=== PATIENT | female | born 1950 | race Caucasian/White ===

== ENCOUNTER 2024-12-01 17:35 | Inpatient (IN) | payer MEDICARE, OTHER, SELFPAY ==
[2024-12-01] VITALS (20 sets, daily range): BP systolic 94–131; BP diastolic 51–86; BMI 34.9; BMI 37.2
--- NOTE | 2024-12-01 15:03 | ED.GENMED ---
History of Present Illness
General
Chief Complaint: Heart Rate Problem
Time Seen by Provider: 12/01/24 15:02
History of Present Illness
History of Present Illness:
FOCUSED PAST MEDICAL HISTORY
- HTN
REVIEW OF OLD RECORDS
- I reviewed records, the patient had an echo in 2022 was relatively unremarkable with normal EF. I reviewed EMS notes which indicates that the patient is on amlodipine and valsartan.
Went to power brake operator at [facility] due to CP for past 8wks. Associated w/ LE edema and palpitations. EKG at power brake operator noted new onset rapid afib. Palpitations for EMS. EMS rates 120-160s. Was given Cardizem 20mg IV x 1 w/ improvement of
rate to around 80s-110s. The squeezing in chest feels better after exertion. Some mild headache currently; patient was not given any nitroglycerin prior to arrival
Note:
CHIEF COMPLAINT(S)
Irregular heartbeat and chest discomfort.
HISTORY OF PRESENT ILLNESS
The patient is a 74-year-old female who presented with an eight-week history of intermittent chest pressure described as a tight sensation, which occurs unpredictably and is not exacerbated by physical exertion. Additionally, she reports
experiencing palpitations, described as a sensation of the heart skipping beats. She was evaluated by a power brake operator today who noted abnormalities on her electrocardiogram, prompting referral for emergency evaluation.
The patients heart rate was reported by EMS to range from 120 to 160 beats per minute. She describes occasional leg swelling, though not present today, and intermittent shortness of breath, which is reportedly not acute at the moment of evaluation.
The patient reports feeling nauseated and has a mild headache.
According to EMS, she has atrial fibrillation. The potential risks of embolic events such as stroke were discussed, given her age and gender, suggesting the need for anticoagulation therapy. A plan for cardiac blood work including troponin levels
was discussed, along with potential initiation of a continuous medication drip to manage her heart rhythm.
SOCIAL HISTORY
The patient rarely consumes alcohol.
PHYSICAL EXAM
General: Alert, no acute distress.
Skin: Warm, dry.
Head: Normocephalic, atraumatic.
Neck: Supple, trachea midline.
Eye Ears, nose, mouth, and throat: Oral mucosa moist.
Cardiovascular: Normal peripheral perfusion, No edema. Irregular rhythm, tachycardic rate
Respiratory: Respirations are non-labored.
Gastrointestinal: Abdomen nondistended.
Back: Normal range of motion, Normal alignment.
Musculoskeletal: Normal range of motion, normal strength.
Neurological: Alert and oriented to person, place, time, and situation, no focal neurological deficit observed.
Psychiatric: Cooperative, appropriate mood and affect.
PLAN
1. Cardiac evaluation: Perform cardiac blood work, including troponin levels.
2. Initiate continuous drip Cardizem to control heart rhythm.
3. Contact the cardiology group for further recommendations regarding anticoagulation therapy.
4. Offer symptomatic relief for nausea and to help calm the patient, though currently declined.
DIFFERENTIAL DIAGNOSIS
The Differential Diagnosis includes, in no particular order and is not limited to:
1. Atrial fibrillation
2. Atrial flutter
3. Supra-ventricular tachycardia
4. Congestive heart failure
5. Pulmonary embolism
6. Myocardial ischemia or infarction
7. Anxiety-related palpitations
8. Valvular heart disease
9. Hypertensive heart disease
10. Thyrotoxicosis
This patient is presenting with symptoms that could fit many potential cardiovascular or systemic conditions. Further diagnostic workup and monitoring are necessary to narrow down these differentials.
EKG
- A-fib/flutter rate of 95, nonspecific [facility], no old to compare
LABS
- Troponin less than 0.012, chemistries unremarkable exception of sodium of 131, CBC normal
SUMMARY OF ENCOUNTER
The patient, a 74-year-old female, presented with an irregular heartbeat and chest discomfort. She was seen previously by a power brake operator, who identified abnormalities on her electrocardiogram suggesting atrial fibrillation, leading to her referral
for emergency evaluation. In the emergency department, her heart rate ranged from 120 to 160 beats per minute. Given the potential risks associated with atrial fibrillation, anticoagulation therapy was considered. Cardiac blood work was initiated,
including troponin levels, and a plan to start a continuous medication drip to control heart rhythm was discussed.
DISPOSITION
The decision was made to admit the patient to the hospital for further monitoring and management.
ASSESSMENT
The patient is likely experiencing atrial fibrillation, confirmed by ECG abnormalities and clinical presentation of palpitations and chest discomfort. Consideration for atrial flutter, supraventricular tachycardia, and other potential cardiovascular
conditions is ongoing.
MANAGEMENT OF THE PATIENTS CARE WAS DISCUSSED WITH
The case was discussed with Dr. Rod Calderon, who concurred with the plan to admit the patient for further care.
PLAN
1. Hospital admission for ongoing monitoring and management of atrial fibrillation.
2. Initiate cardiac blood work, including troponin levels.
3. Start continuous medication drip to manage heart rhythm as discussed with cardiology.
4. Pending results of TSH testing to further assess and rule out potential contributing factors.
INDEPENDENT REVIEW OF LABS AND INTERPRETATION OF TESTS
My independent review of chemistry indicates that the patient has mild hyponatremia, as sodium is slightly low at 131. The initial troponin level is less than 0.012, which does not suggest myocardial infarction.
MEDICAL DECISION MAKING
-Complexity of Data Reviewed: Chronic conditions affecting care include the patient�s history of cardiovascular abnormalities and differential diagnosis, including atrial fibrillation, atrial flutter, supraventricular tachycardia, congestive heart
failure, pulmonary embolism, myocardial ischemia or infarction, anxiety-related palpitations, valvular heart disease, hypertensive heart disease, and thyrotoxicosis.
-Data:
Category 1
Non-emergency department records reviewed, such as the patient�s cardiology evaluation notes.
Review of laboratory results, including sodium levels and initial troponin.
Category 3
Discussion of management with Dr. Rod Calderon regarding the admission and overall care plan for the patient due to her presenting condition.
-Risk:
Consideration of admission was necessary due to the complexity and risk of the patients presenting condition, including the potential for atrial fibrillation complications. This included the decision for hospitalization and close monitoring.
DIAGNOSIS
1. Atrial Fibrillation (ICD-10: I48.91)
2. Chest Pain, Unspecified (ICD-10: R07.9)
Phy Exam
Physical Exam
Physical Exam:
See HPI
Course
Orders/Labs/Results
Orders:
Orders
12/01/24 14:58
Electrocardiogram (*1) Urgent
Reason for Study: Chest Pain
Cardiac Monitoring- Treatment ONCE
EKG- Treatment ONCE
12/01/24 15:04
Add On- LAB Urgent
Tests Added?: tsh reflex fT4, mg
12/01/24 15:22
Ondansetron Injectable [Zofran] 4 mg IV NOW STA
diazePAM [Valium Injection] 2.5 mg IV NOW STA
12/01/24 15:28
Complete Blood Count/With Diff Urgent
Comprehensive Metabolic Panel Urgent
Magnesium Urgent
Comment: ADD ON
TSH Reflex To Free T4 Urgent
Comment: ADD ON
Troponin I Urgent
12/01/24 15:30
Diltiazem 125 mg/125 ml Nss [Cardizem] 125 mg in 125 ml IV PER PROTOCOL
Initial dose in mg/hr, then titrate:: 5
Titrate to keep:: Heart rate 80-100 bpm
Titrate by mg/hr:: 5 mg/hr
Frequency of titrations (minutes):: 15
Maximum dose in mg/hr:: 15
12/01/24 16:06
CARDIOLOGY CONSULT Routine
Consulting Provider: Fei Rosales
Was physician already notified: Yes
Reason for consult: New onset A-fib with RVR
12/01/24 16:24
Acetaminophen [Tylenol] 650 mg PO NOW STA
12/01/24 16:25
Admit/Transfer Patient As Directed
Co-Sign Provider:
Level of Care: Inpatient admission
Assign to:: IMU- Intermediate Care
Physician / Group: stella samuel
Diagnosis: new onset afib with rvr,anxiety
Reason for Hospitalization: new onset afib with rvr, anxiety
Expected length of stay greater than two midnights?: Yes
ELOS- Estimated Length of Stay in days: 3
I certify the patient meets the requirements for IP care: Yes
Code Status As Directed
Resuscitation Status: Full Code
12/01/24 16:27
PRN Pain Medication Management As Directed
May give lesser potent ordered pain med per pt: Yes
preference::
Protocol:: Medication orders for pain may be administered in a
manner that supports deferring to patient preference
when the pt is:
- Requesting an ordered lesser potent pain medication.
Least to most potent pain medications are defined
as: acetaminophen < NSAID < tramadol < opioids
(morphine, oxycodone, hydromorphone).
- Requesting a lesser dose of the same medication IF
ORDERED.
- Requesting a less intrusive route of administration
if both routes are prescribed by the provider (PO <
IV).
12/01/24 16:36
Add On- LAB Urgent
Tests Added?: bnp
12/01/24 20:00
Apixaban [Eliquis] 5 mg PO BID
Abnormal Lab Results
12/01/24
15:28
Abs Immat Gran (auto) 0.1 H 10^3/uL
(0-0.05)
Absolute Neuts (auto) 6.8 H 10^3/uL
(1.4-6.5)
Absolute Monos (auto) 0.7 H 10^3/uL
(0.1-0.6)
Immature Gran % 1.0 H %
(0-0.5)
Lymphocytes % 15.7 L %
(20.5-51.1)
Sodium 131 L mmol/L
(135-145)
Glucose 152 H mg/dl
(70-99)
Total Bilirubin 1.5 H mg/dl
(0.2-1.3)
Alkaline Phosphatase 162 H U/L
(38-126)
12/01/24 15:28
12/01/24 15:28
Vital Signs
Initial and Last Documented VS:
Initial Vital Signs
Pulse Resp BP
127 18 114/66
12/01/24 15:02 12/01/24 15:02 12/01/24 15:02
Last Documented Vital Signs
Temp Pulse Resp BP Pulse Ox
36.6 C 104 12 108/86 98
12/01/24 15:03 12/01/24 16:30 12/01/24 16:30 12/01/24 16:15 12/01/24 16:00
*Pulse Oximetry
Patient hypoxic: no
*Critical Care Note
Total Time (30-74mins, 75-104mins- exclusive of procedures): Not Applicable
ED Attending Note
-
Portions of this chart may have been created with voice recognition software.� Occasional wrong word or��sound alike� substitutions may have occurred due to the inherent limitations of voice recognition software.
Discharge Plan
Departure
Patient Disposition: Admit
Date of Disposition: 12/01/24
Time of Disposition: 15:57
Presentation/result/management discussed w/ accepting MD/DO: Hospitalist
Discharge Problem:
Atrial fibrillation with rapid ventricular response
Prescriptions:
No Action
amlodipine [Norvasc] 5 mg Tablet
5 mg PO DAILY
valsartan 320 mg Tablet
320 mg PO DAILY
ibuprofen [Advil] 200 mg Tablet
200 mg PO Q6HPRN PRN (Reason: mild pain)
calcium carbonate-vitamin D3 [Calcium 600 + D(3)] 600 mg-10 mcg (400 unit) Tablet
1 tab PO DAILY
Interventions
Interventions:
*Risk Screen - Suicide Last Done: 12/01/24 15:03
*General Assessment Last Done: 12/01/24 15:03
*Neglect/Abuse Screening Last Done: 12/01/24 15:03
*ED- Fall Risk Assessment Last Done: 12/01/24 15:11
*ED COVID-19 Vaccine History Last Done: 12/01/24 15:03
ED- Cardiac Assessment Last Done: 12/01/24 15:50
ED- Pulmonary Assessment Last Done: 12/01/24 15:50
Discharge Date and Time
Print Language: FAROESE
--- NOTE | 2024-12-01 15:17 | EDRN ---
Dr. Kumar in room w/ pt at this time.
--- NOTE | 2024-12-01 15:36 | W.PN.CARDCBS ---
Addendum entered and electronically signed by Feliciano Calderon MD 12/01/24 17:53:
74-year-old woman seen in our office today with symptoms of discomfort in her chest which have been intermittent associated with dyspnea on exertion. Upon presentation found to be in atrial fibrillation with rapid ventricular response and sent to
the emergency department.
PMH: Hypertension and morbid obesity, no prior history of atrial fibrillation
PSH: , herniorrhaphy, left total hip replacement
Medications at presentation: Amlodipine 5 mg a day valsartan 320 mg a day
FH: Positive for premature CAD
SH: Former smoker, rare alcohol
Allergies: Sulfa, hyponatremia on hydrochlorothiazide
Rest of history as well as findings, assessments and recommendations as below. Reviewed in detail and agree unless otherwise specified
114/66, pulse 124, respiratory rate 15, head and neck exam unremarkable, lungs are clear, cardiac exam notable for an irregular rate and rhythm without obvious murmurs or gallops, abdomen benign, extremities without clubbing cyanosis or edema neuro
nonfocal
ECG: Atrial fibrillation, nonspecific ST and T changes, low voltage
Hemoglobin 15.8, sodium 131, BUN/creatinine 16 and 0.6, troponin undetectable, TSH pending, proBNP 548
Chest x-ray pending
Impression:
Atrial fibrillation, suspect persistent
Hypertension
Anxiety
Hyponatremia
Plan:
She presents with atrial fibrillation with rapid ventricular response. Unclear whether her A-fib has been paroxysmal or persistent over the last few weeks. Thus far, she seems to be tolerating relatively well despite her rapid ventricular response.
Agree with IV diltiazem and initiation of Eliquis. Presuming that atrial fibrillation persist throughout the night, plan will be to proceed with transesophageal echo and cardioversion in the morning.
Importance of lifestyle measures to prevent A-fib recurrences reviewed, weight loss emphasized. Briefly touched on potential strategies up to and including ablation, though for now would favor anticoagulation and beta-yan or calcium yan
therapy as initial steps.
Await transesophageal echo and cardioversion.
Original Note:
Today's Communication / Plan
-
Cardizem gtt overnight and if fails to convert then GRAYSON/CV
Check pro-BNP and consider diuresis
Impression / Plan
-
PCP: Dr. Cam Carrera
Cardiology: Dr. Rosales
Impression:
Presented to the ER with rapid A-fib and chest pain 12/01/2024
Atypical chest pain
Newly diagnosed A-fib with RVR 12/01/2024
HTN
LE edema
Echo 09/17/2022: EF 65 to 70%, normal regional wall motion, mild concentric LVH, aortic sclerosis without stenosis
Plan:
-Patient came to the ER today after she was noted to be in new rapid A-fib at cardiology visit and cardiology is now consulted in the ER. Patient had previously been seen by cardiology in 2022 for symptoms of LE edema and a history of HTN.
Afterwards patient continued to follow with her PCP, but called our office asking to be seen again as she felt that she had SOB and atypical chest pain around the time she turns 74 back in October. Patient says her symptoms are exertional and that
she feels short of breath with activity and gets an oddly cool sensation in her chest with activity. She is not aware of palpitations necessarily. She has been feeling increasingly anxious as well. In the cardiology office her ECG showed A-fib
with RVR and the patient was referred to the ER for further evaluation. In the ER Cardizem gtt was started and A-fib heart rates have improved which coincides with some symptomatic improvement as well.
-Office-based ECG from 12/01/2024 was reviewed by me and shows A-fib with RVR to 160 beats a minute. ECG from the ER also reviewed by me shows A-fib with less than 2-second pause likely contributing to the slower heart rate of 95 bpm and remains in
A-fib.
-A-fib is a new diagnosis. I spent time reviewing with the patient and her children in the room the pathophysiology of A-fib and we also talked about short-term and long-term treatments.
-Cardizem gtt running at 10 mg/hr and HR has improved from 160 in the cardiology office to a rate of 105-115. Patient is symptomatically improved.
-Reviewed with patient the recommendation for an attempt at rhythm control given her symptoms and she is agreeable to GRAYSON/CV in the morning if she fails to convert overnight.
-Outpatient dose of amlodipine should be held
-Outpatient dose of valsartan can also be held to allow for up titration of Cardizem gtt
-Patient with increased LE edema and RUBIO. Check proBNP. Pending results could consider a dose of Lasix 40 mg IV x 1. Patient was not taking a diuretic prior to admission and EF was preserved in 2022.
-Recheck EF at time of GRAYSON/CV
-Start Eliquis 5 mg BID (age 74, Cre 0.6) tonight
-Also discussed with patient long-term rhythm control efforts including antiarrhythmic drug and ablation strategies. Again we talked about short-term and long-term goals of treatment.
-Eventual outpatient [facility] evaluation
-TSH pending
-Initial troponin is undetectable despite weeks of atypical chest pain.
Progress Note - Soccer Coach
Subjective
Date of Service: December 01, 2024
Chest feels like she's breathing in cold air
Objective
Labs:
Sodium 131, potassium 4.3, BUN 16, creatinine 0.6, AST 21, ALT 21, troponin undetectable x 1, proBNP pending, TSH pending
Hgb 15.8, WBC 9.1, platelet count 234,000
Vital Signs and I&O:
Vital Signs
Temp Pulse Resp BP Pulse Ox
98 F 124 15 114/66 96
12/01/24 15:03 12/01/24 15:15 12/01/24 15:15 12/01/24 15:03 12/01/24 15:03
Vital Signs
Temp Pulse Resp BP Pulse Ox
98 F 124 15 114/66 96
12/01/24 15:03 12/01/24 15:15 12/01/24 15:15 12/01/24 15:03 12/01/24 15:03
Physical Exam
Physical Exam
GEN: NAD. AAOx3
HEENT: EOMI, MMM
LUNGS: RA. CTA B/L, no wheeze
CV: Afib with RVR on tele. Reg, S1/S2, no murmur
ABD: ND
EXT: Trace B/L LE edema
NEURO: Gross non-focal
SKIN: No rash
[2024-12-01 15:38] LABS: Hematocrit 45.1 % (37.0-47.0); Hemoglobin 15.8 g/dL (12.0-16.0); Mean Corp Hgb Conc. 35.0 g/dL (33.0-37.0); Mean Corpuscular Volume 84.0 fL (81.0-99.0); Nucleated Red Blood Cells % 0 %; Platelet Count 234 10^3/uL (130-400); Red Cell Dist. Width 13.0 % (11.5-14.5)
[2024-12-01] MEDS: ZOFRAN 4 MG IV (15:42)
[2024-12-01] MEDS: VALIUM INJECTION 2.5 MG IV (15:42)
[2024-12-01] MEDS: CARDIZEM 125 IV (15:50)
[2024-12-01 15:52] LABS: ALT (SGPT) 21 U/L (0-35); AST (SGOT) 21 U/L (14-36); Albumin 4.6 g/dl (3.5-5.0); Alkaline Phosphatase 162 U/L (38-126); Blood Urea Nitrogen 16 mg/dl (7-17); Calcium 9.4 mg/dl (8.4-10.2); Carbon Dioxide 22 mmol/L (22-30); Chloride 100 mmol/L (98-107); Estimated Creatinine Clearance 83 ml/min; Glucose 152 mg/dl (70-99); Magnesium 1.7 mg/dl (1.6-2.3); Potassium 4.3 mmol/L (3.5-5.1); Sodium 131 mmol/L (135-145); Total Protein 7.4 g/dl (6.3-8.2); eGFR > 60.00
[2024-12-01 16:01] LABS: Troponin I < 0.012 ng/ml
--- NOTE | 2024-12-01 16:05 | HPS.HSE ---
Addendum entered and electronically signed by Josh Vidal MD 12/01/24 17:27:
see update note for addendum
Original Note:
Family Physician
-
Family Physician: NOT KNOW UNKNOWN - PT DOES
Chief Complaint
-
Chest pain, lower extremity edema, palpitations x 8 weeks
History of Present Illness
74-year-old female complaining of 8-week history of chest pain associated with lower extremity edema and palpitations. She reports the chest pains/palpitations improved with walking. She went to the nursing program coordinator at [facility] today was noted
to be in new onset rapid A-fib. EMS was called she was given Cardizem 20 mg IV with improvement heart rate 80s 100s. She was placed on Cardizem drip in the ER. She does report feeling anxious with some nausea dizziness and headache since finding
out she was in A-fib at the office. The patient denies recent illness, fever, chills, sore throat, cough, abdominal pain, nausea, vomiting, diarrhea, urinary symptoms. She has past medical history of HTN, ex-smoker, bronchitis, arthritis,
borderline diabetes
Medical History
Past Medical History
Past Medical History: Reports Other
Additional Past Medical History:
HTN
ex-smoker
bronchitis
arthritis
borderline diabetes
Past Surgical History: Reports Other
Additional Past Surgical History:
Right inguinal hernia reduction 82
section 1982
Left total hip replacement 2022
Social History
Tobacco: Former Smoker
Alcohol: None
Drug: None
Personal: Single
Living: Alone
Employment: Retired
Family History
Family History: Not pertinent
Allergies / Home Medications
Allergies reflects when Allergies were last updated in [facility].
Home Medications with original date entered in [facility]
Allergy/Medication List:
Allergies
Allergy/AdvReac Type Severity Reaction Status Date / Time
adhesive Allergy itchy Verified 12/01/24 14:57
Sulfa (Sulfonamide Allergy Unknown Verified 12/01/24 14:57
Antibiotics)
Home Medications
amlodipine 5 mg tablet (Norvasc) 5 mg PO DAILY 12/01/24
calcium 600 mg (as carbonate)-vitamin D3 10 mcg (400 unit) tablet (Calcium 600 + D(3)) 1 tab PO DAILY 12/01/24
ibuprofen 200 mg tablet (Advil) 200 mg PO Q6HPRN PRN mild pain 12/01/24
valsartan 320 mg tablet 320 mg PO DAILY 12/01/24
Review of Systems
-
History Source: Patient
A 12 point ROS was completed and negative except as noted: Yes
Constitutional: Denies Fever or Chills
EENT: Denies Sore Throat or Runny Nose
Respiratory: Denies Cough or Trouble Breathing
Cardiac: Reports Chest Pain and Palpitations; Denies Diaphoresis or Syncope
Abdomen/GI: Reports Nausea; Denies Abdominal Pain, Vomiting or Diarrhea
: Denies Dysuria, Frequency, Flank Pain, Incontinence or Difficulty Voiding
Musculoskeletal: Reports Edema (Trace bilateral lower legs nonpitting); Denies Joint Pain
Skin: Denies Itching or Rash
Neurological: Reports Dizzy and Headache; Denies Weakness
Endocrine: Reports No Symptoms
Hematologic/Lymphatic: Reports No Symptoms
Psych: Reports Anxiety (Reports feeling anxious since finding out she was in A-fib with RVR)
Physical Exam
Vital Signs
Vital Signs
Temp Pulse Resp BP Pulse Ox
98 F 124 15 114/66 96
12/01/24 15:03 12/01/24 15:15 12/01/24 15:15 12/01/24 15:03 12/01/24 15:03
Physical Exam
General: Comfortable and Conversant; No Fever or Chills
HEENT: NormoCephalic, Anicteric, Moist mucous membranes, PERRLA, Thor Conjunctivae and No Ptosis; No Nodules
Respiratory: Clear; No Wheezes, Rales or Rhonchi
Cardiac: S1/S2, Irregular Rhythm (A-fib with RVR heart rate 114 bpm on monitor) and Peripheral Edema (Trace bilateral lower legs nonpitting); No Murmur, Rub, Gallop or Calf Tenderness
Breast: Deferred by me
GI: Soft, Non Tender, Non Distended, Normal Bowel Sounds and No Hepatosplenomegaly
Rectal: Deferred by Provider
Genito-urinary: Deferred by me
Musculoskeletal: No Clubbing, No Cyanosis, Edema, Left Lower Extremity (Trace bilateral lower legs nonpitting) and Edema, Right Lower Extremity (Trace bilateral lower legs nonpitting); No Edema, Left Upper Extremity or Edema, Right Upper Extremity
Skin: Warm and Dry; No Rash
Neuro: AO x 3, No Motor Deficits, Nonfocal/grossly intact, Cranial Nerves Intact and No Sensory Deficits; No Slurred Speech, Facial Droop, Tremors or Sedated
Psych: Anxious (Started feeling when she found out she was in A-fib with RVR at doctor office)
Laboratory Results
-
12/01/24 15:28
12/01/24 15:28
Laboratory Results
Total Bilirubin 1.5 mg/dl (0.2-1.3) H 12/01/24 15:28
AST 21 U/L (14-36) 12/01/24 15:28
ALT 21 U/L (0-35) 12/01/24 15:28
Alkaline Phosphatase 162 U/L (38-126) H 12/01/24 15:28
Troponin I < 0.012 ng/ml 12/01/24 15:28
Impression/Plan
-
Impression/plan:
Admit to IVU
#New onset A-fib with RVR
-TSH with free T4 reflex
-IV Cardizem drip received 20 mg bolus by EMS
-Check 2D echo
- Consult [facility] cardiology
- Tylenol now for headache
- Check BNP eval for possible heart failure
- GRAYSON tomorrow
- Start Elireece leone per cardiology
2D echo 09/17/2022: EF 65 to 70%, normal LV S LVSF, mild LVH, trace TR, PASP 37-39 mmHg, ascending aorta 4 cm
#Anxiety�new related to new diagnosis A-fib with RVR
Will give Tylenol for current headache
Patient was given Valium and Zofran for dizziness and nausea related to anxiety in ER
#HTN�benign
BP 114/66
-Hold valsartan and Norvasc while on IV Cardizem drip
#Borderline DM 2 Hx
Blood sugar 152
-Check HgbA1c
#Ex-smoker
#Bronchitis Hx no acute exacerbation
#Arthritis unknown type
Hold Advil as needed
DVT prophylaxis
Full code
--- NOTE | 2024-12-01 16:09 | EDRN ---
Christina Rodriguez REFERENCE LIBRARY ASSISTANT in room w/ pt for hospitalist group. [facility] just left room post med rec.
--- NOTE | 2024-12-01 16:32 | W.PN.UPDATE ---
Update Note
Progress Note Update
I saw and examined the patient.
The CORE WINDER MACHINE OPERATOR Jacqueline's note was reviewed and I agree with the note.
Comment: 74 y/o F, presenting to ER with 8 week history of chest discomfort along with LE edema and palpitations. She presented to outpatient [employer] Furnace Expediter who noted rapid Afib. EMS was called and IV Cardizem was given with improvement with HRs to
80-100s. In ER, placed on Cardizem drip. Evaluated by Cardiology and admitted for further management. Eliquis initiated.
Exam:
General: Comfortable and Conversant; No Fever or Chills
HEENT: Normocephalic, Anicteric, Moist mucous membranes, PERRLA, [place] Conjunctivae and No Ptosis; No Nodules
Respiratory: Clear; No Wheezes, Rales or Rhonchi
Cardiac: S1/S2, Irregular Rhythm (A-fib with RVR heart rate 114 bpm on monitor) and Peripheral Edema (Trace bilateral lower legs nonpitting); No Murmur, Rub, Gallop or Calf Tenderness
Breast: Deferred by me
GI: Soft, Non Tender, Non Distended, Normal Bowel Sounds and No Hepatosplenomegaly
Rectal: Deferred by Provider
Genito-urinary: Deferred by me
Musculoskeletal: No Clubbing, No Cyanosis, Edema, Left Lower Extremity (Trace bilateral lower legs nonpitting) and Edema, Right Lower Extremity (Trace bilateral lower legs nonpitting); No Edema, Left Upper Extremity or Edema, Right Upper Extremity
Skin: Warm and Dry; No Rash
Neuro: AO x 3, No Motor Deficits, Nonfocal/grossly intact, Cranial Nerves Intact and No Sensory Deficits; No Slurred Speech, Facial Droop, Tremors or Sedated
Psych: Anxious (Started feeling when she found out she was in A-fib with RVR at doctor office)
Assessment: continue IV Cardizem drip; monitor tele. Eliquis. DCA cards consulted. GRAYSON. May consider GRAYSON/CV tomorrow. BNP 548. Rest of plan per CORE WINDER MACHINE OPERATOR notes.
--- NOTE | 2024-12-01 16:32 | EDRN ---
Alina LEES w/ cardiology in room w/ pt at this time.
--- NOTE | 2024-12-01 16:38 | EDRN ---
Dr. Sudhakar Calderon w/ cardiology in room w/ pt at this time.
[2024-12-01] MEDS: TYLENOL 650 MG PO ×2 (16:58→22:45)
--- NOTE | 2024-12-01 17:51 | EDRN ---
Case Management, Jaclyn. in room w/ pt at this time.
[2024-12-01] MEDS: ELIQUIS 5 MG PO (18:10)
--- NOTE | 2024-12-01 18:12 | CM ---
CM reviewed chart and met with pt bedside in ED. Her son and Son in law were also in the room.
Pt lives alone in 2 story home, [address], has first floor half bath, bedroom and full bath on second floor.
Independent in ADLs, personal care and ambulation. Has cane and walker in home from prior surgery, occasionally uses cane
Confirms prescription coverage.
No hx VN or SNF.
PCP; Cam Dai
Pharmacy: [facility] and [facility]
Anticipate discharge home, CM will continue to follow for any discharge planning needs.
--- NOTE | 2024-12-01 18:15 | EDRN ---
Pt still in A Fib though rate 70's-90's so pt off monitor to BR at this time, ambulated to and fron and replaced on quality assurance monitor final.
--- NOTE | 2024-12-01 18:55 | EDRN ---
Verbal report given to Cierra CODY in IVU at this time.
--- NOTE | 2024-12-01 23:58 | PTCARENOTE ---
Addendum entered by Cierra Perez RN 12/02/24 00:01:
Pt's HR 55-64 Cardizem gtt titrated per order
Original Note:
Pt admitted to room 2246 with new onset AFib. Pt AFib on monitor with HR 90-110BPM. VSS. Pt c/o intermittent PHIPPS. Cardizem gtt per order. Pt independent in the room. Oriented to the room. Call mary w/in reach
[2024-12-02] VITALS (10 sets, daily range): BP systolic 101–124; BP diastolic 56–81; PULSE 69–100; O2SAT 99; BMI 36.9
[2024-12-02] MEDS: CARDIZEM 125 IV (00:30)
--- NOTE | 2024-12-02 02:52 | DOWNTIME ---
There was a [address] Client Electrical And Radio Mock Up Mechanic Downtime on 12/02/2024 from 0100 to 12/02/2024 at 0215. Downtime documentation of patient's care, including medication administrations, has been reconciled in the electronic record per guidelines. Refer to the
patient's paper chart under the miscellaneous tab to see printed paper medication records and downtime forms.
[2024-12-02 04:46] LABS: Hematocrit 40.6 % (37.0-47.0); Hemoglobin 14.5 g/dL (12.0-16.0); Mean Corp Hgb Conc. 35.7 g/dL (33.0-37.0); Mean Corpuscular Volume 85.1 fL (81.0-99.0); Nucleated Red Blood Cells % 0 %; Platelet Count 230 10^3/uL (130-400); Red Cell Dist. Width 12.8 % (11.5-14.5)
[2024-12-02 05:10] LABS: ALT (SGPT) 18 U/L (0-35); AST (SGOT) 18 U/L (14-36); Albumin 4.0 g/dl (3.5-5.0); Alkaline Phosphatase 121 U/L (38-126); Blood Urea Nitrogen 11 mg/dl (7-17); Calcium 9.2 mg/dl (8.4-10.2); Carbon Dioxide 23 mmol/L (22-30); Chloride 101 mmol/L (98-107); Estimated Creatinine Clearance 85 ml/min; Glucose 125 mg/dl (70-99); HDL Cholesterol 49 mg/dl; LDL Cholesterol, Calculated 79 mg/dl; Potassium 4.2 mmol/L (3.5-5.1); Sodium 130 mmol/L (135-145); Total Protein 6.5 g/dl (6.3-8.2); Very Low Density Lipoprotein 21 mg/dl (0-30); eGFR > 60.00
--- NOTE | 2024-12-02 07:54 | W.PN.CARDCBS ---
Addendum entered and electronically signed by Denver Owen MD 12/02/24 12:27:
I saw and examined the patient.
The FIELD CREW CHIEF or PA's note was reviewed and I agree with the note.
Comment: General: Well developed, well nourished in NAD.
Neck: Supple, no JVD, HJR, carotids +2 B/L, no bruits bilaterally.
Heart: Non displaced PMI, irregular, no murmurs, No S3, S4, no rubs.
Lungs: Clear to auscultation bilaterally, no wheeze, rhonchi, rubs bilaterally,
normal expiratory phase.
Extremities: No clubbing, cyanosis or edema bilaterally.
Neuro: Grossly nonfocal, awake, alert and oriented x3.
Plan is for GRAYSON/cardioversion today and discharge to home afterwards. Discussed with primary service. Follow-up will be arranged.
Original Note:
Today's Communication / Plan
-
Try Toradol for PHIPPS
Remains in Afib, plan is for GRAYSON/CV today
New to Eliquis
Troponin undetectable despite days of pain
Impression / Plan
-
PCP: Dr. Cam Carrera
Cardiology: Dr. Rosales
Impression:
Presented to the ER with rapid A-fib and chest pain 12/01/2024
Atypical chest pain
Newly diagnosed A-fib with RVR 12/01/2024
HTN
LE edema
PHIPPS
Echo 09/17/2022: EF 65 to 70%, normal regional wall motion, mild concentric LVH, aortic sclerosis without stenosis
Plan:
-Remains in Afib on tele reviewed by me 12/02/24. Check ECG, ordered by me.
-Cardizem gtt running at 5 mg/hr
-Afib was newly diagnosed at cardiology office visit 12/01/24.
-New to Eliquis 5 mg BID
-Plan is for GRAYSON/CV 12/02/24.
-Reviewed with patient that if Afib recurs in short order then could consider AAD or ablation.
-Outpatient dose of amlodipine has been held to maximize rate control efforts
-Outpatient dose of valsartan can also be held to allow for up titration of Cardizem gtt
-Patient with increased LE edema, but pro-BNP only 548
-Recheck EF at time of GRAYSON/CV
-Eventual outpatient [facility] evaluation
-TSH normal at 1.08
-Troponin is undetectable despite weeks of atypical chest pain.
-Possible d/c to home 12/02/24
HPI: Patient came to the ER today after she was noted to be in new rapid A-fib at cardiology visit and cardiology is now consulted in the ER. Patient had previously been seen by cardiology in 2022 for symptoms of LE edema and a history of HTN.
Afterwards patient continued to follow with her PCP, but called our office asking to be seen again as she felt that she had SOB and atypical chest pain around the time she turns 74 back in October. Patient says her symptoms are exertional and that
she feels short of breath with activity and gets an oddly cool sensation in her chest with activity. She is not aware of palpitations necessarily. She has been feeling increasingly anxious as well. In the cardiology office her ECG showed A-fib
with RVR and the patient was referred to the ER for further evaluation. In the ER Cardizem gtt was started and A-fib heart rates have improved which coincides with some symptomatic improvement as well.
Progress Note - [employer] [place]
Subjective
Date of Service: December 02, 2024
She is anxious and has a PHIPPS
Objective
Labs:
12/02/24 04:23
12/02/24 04:23
Labs
Hgb 14.5 g/dL (12.0-16.0) 12/02/24 04:23
Hct 40.6 % (37.0-47.0) 12/02/24 04:23
Plt Count 230 10^3/uL (130-400) 12/02/24 04:23
Sodium 130 mmol/L (135-145) L 12/02/24 04:23
Potassium 4.2 mmol/L (3.5-5.1) 12/02/24 04:23
BUN 11 mg/dl (7-17) 12/02/24 04:23
Creatinine 0.6 mg/dL (0.6-1.0) 12/02/24 04:23
Glucose 125 mg/dl (70-99) H 12/02/24 04:23
Troponins
12/01/24
15:28
Troponin I < 0.012
Vital Signs and I&O:
Vital Signs
Temp Pulse Resp BP Pulse Ox
98 F 75 20 124/66 97
12/02/24 07:00 12/02/24 07:00 12/02/24 07:00 12/02/24 07:00 12/02/24 07:00
Vital Signs
Temp Pulse Resp BP Pulse Ox
98 F 75 20 124/66 97
12/02/24 07:00 12/02/24 07:00 12/02/24 07:00 12/02/24 07:00 12/02/24 07:00
Intake & Output
11/30/24 12/01/24 12/02/24 12/03/24
06:59 06:59 06:59 06:59
Intake Total 400 / 400
Balance 400 / 400
Physical Exam
Physical Exam
GEN: NAD. AAOx3
LUNGS: RA.
CV: Afib
[2024-12-02 08:16] LABS: Glycohemoglobin (HgbA1c) 5.8 % (4.0-5.6)
[2024-12-02] MEDS: ELIQUIS 5 MG PO ×2 (08:21→21:14)
[2024-12-02] MEDS: TORADOL 15 MG IV (08:21)
[2024-12-02] MEDS: FLUSH (NSS) 2 FLUSH IV (08:22)
--- NOTE | 2024-12-02 09:16 | W.PN.HOSP.TC ---
Today's Communication/Plan
-
GRAYSON & CV
Assessment / Plan
Assessment / Plan
Physical Exam
General: Comfortable and Conversant; No Fever or Chills
HEENT: Normocephalic, Anicteric, Moist mucous membranes, PERRLA, [place] Conjunctivae and No Ptosis; No Nodules
Respiratory: Clear; No Wheezes, Rales or Rhonchi
Cardiac: S1/S2, Irregular Rhythm
GI: Soft, Non Tender, Non Distended, Normal Bowel Sounds
Rectal: Deferred by Provider
Genito-urinary: No [place]
Musculoskeletal: No Clubbing, No Cyanosis,
Skin: Warm and Dry; No Rash
Neuro: AO x 3, No Motor Deficits, Nonfocal/grossly intact, No Slurred Speech, Facial Droop, Tremors or Sedated
Psych: calm
A/P
#New onset A-fib with RVR
-TSH with free T4 reflex: normal
-IV Cardizem drip received 20 mg bolus by EMS
-Check 2D echo
- Tylenol now for headache
- Check BNP eval for possible heart failure
- GRAYSON with cardioversion
- Started Eliquis tonight per cardiology
2D echo 09/17/2022: EF 65 to 70%, normal LV S LVSF, mild LVH, trace TR, PASP 37-39 mmHg, ascending aorta 4 cm
#Anxiety�new related to new diagnosis A-fib with RVR
# Hyponatremia
#HTN�benign
-Hold valsartan and Norvasc while on IV Cardizem drip
#Borderline DM 2 Hx
Blood sugar 152
HgbA1c 5.8
#Ex-smoker
#Bronchitis Hx no acute exacerbation
#Arthritis unknown type
Hold Advil as needed
DVT prophylaxis
total time spent to see the patient, examine the patient, review data and lab results, discuss treatment plan with patient, nursing staff around 55 minutes
Anticipated Discharge: Within 24 hours
Subjective/Interval History
-
Date of Service: December 02, 2024
No chest pain
No sob
Objective Data
-
Labs:
Laboratory Results
12/02/24
04:23
WBC 8.7
Hgb 14.5
Hct 40.6
Plt Count 230
Sodium 130 L
Potassium 4.2
Chloride 101
Carbon Dioxide 23
BUN 11
Creatinine 0.6
Glucose 125 H
Calcium 9.2
Total Bilirubin 2.2 H
AST 18
ALT 18
Alkaline Phosphatase 121
Vital Signs:
Vital Signs
Temp Pulse Resp BP Pulse Ox
98 F 75 20 124/66 97
12/02/24 07:00 12/02/24 07:00 12/02/24 07:00 12/02/24 07:00 12/02/24 07:00
I&O
12/01/24 12/02/24 12/03/24
06:59 06:59 06:59
Intake Total 400 / 400
Balance 400 / 400
[2024-12-02] MEDS: DESENEX/MITRAZOL/ZEASORB 1 APPLIC TOPICAL ×2 (09:22→21:15)
--- NOTE | 2024-12-02 11:17 | PTCARENOTE ---
Received the patient from the labeling associate in her bed post CV. The patient is aaox3, vital signs are stable. Sinus molly is noted on the monitor. She has no complaints and sated that 'I actually feel much better.'
--- NOTE | 2024-12-02 11:58 | CM ---
Chart reviewed. Patient is independent of ADLS, lives alone in a [address], [facility], occasionally ambulates with a SPC. Plan is for the patient to return home. CM to follow
--- NOTE | 2024-12-02 11:58 | CM ---
Pricing on Eliquis is $514 for the first month, patient owes $502 to her deductible. Then it will cost her $137 until she meets OOP expense of $2000 then it will be $0. Patient agreeable. I placed a free 30 day coupon in her red discharge folder
[2024-12-02] MEDS: CARDIZEM CD 120 MG PO (17:07)
--- NOTE | 2024-12-02 21:29 | PTCARENOTE ---
Rec'd pt at change of shift. AAO*3, VSS, and SR-Sinus omlly on TELE monitor. Pt denies any pain or discomfort. Education provided about ACT and relation to AFIB. Pt verbalizes understanding and comprehension of teaching. Pt resting with call
hernandez in reach. See MAR and flowchart for full pt care and assessment.
[2024-12-03] VITALS (7 sets, daily range): BP systolic 109–143; BP diastolic 62–89; PULSE 75–80; BMI 36.9
[2024-12-03 04:49] LABS: Hematocrit 39.0 % (37.0-47.0); Hemoglobin 13.4 g/dL (12.0-16.0); Mean Corp Hgb Conc. 34.4 g/dL (33.0-37.0); Mean Corpuscular Volume 85.3 fL (81.0-99.0); Nucleated Red Blood Cells % 0 %; Platelet Count 189 10^3/uL (130-400); Red Cell Dist. Width 13.2 % (11.5-14.5)
[2024-12-03 06:00] LABS: ALT (SGPT) 17 U/L (0-35); AST (SGOT) 18 U/L (14-36); Albumin 3.8 g/dl (3.5-5.0); Alkaline Phosphatase 103 U/L (38-126); Blood Urea Nitrogen 14 mg/dl (7-17); Calcium 9.5 mg/dl (8.4-10.2); Carbon Dioxide 22 mmol/L (22-30); Chloride 105 mmol/L (98-107); Estimated Creatinine Clearance 85 ml/min; Glucose 108 mg/dl (70-99); Potassium 4.6 mmol/L (3.5-5.1); Sodium 134 mmol/L (135-145); Total Protein 6.2 g/dl (6.3-8.2); eGFR > 60.00
[2024-12-03] MEDS: ELIQUIS 5 MG PO (07:45)
[2024-12-03] MEDS: CARDIZEM CD 120 MG PO (07:47)
[2024-12-03] MEDS: DESENEX/MITRAZOL/ZEASORB 1 APPLIC TOPICAL (07:50)
--- NOTE | 2024-12-03 08:00 | PTCARENOTE ---
received report at change of shift from previous RN. Pt AAOx3, resting comfortably. ambulating in room without difficulty. SR/SB on telemetry heart rate in 50-60s. pulses palpable. no edema. pt on room air, lung sounds clear. active bowel sounds.
voiding without difficulty. pt updated on plan of care. Dr lozano at bedside. pt for discharge home today. see worklist for full nursing assessment.
--- NOTE | 2024-12-03 08:50 | W.PN.HOSP.TC ---
Today's Communication/Plan
-
dc
Assessment / Plan
Assessment / Plan
Physical Exam
General: Comfortable and Conversant; No Fever or Chills
HEENT: Normocephalic, Anicteric, Moist mucous membranes, PERRLA, [place] Conjunctivae and No Ptosis; No Nodules
Respiratory: Clear; No Wheezes, Rales or Rhonchi
Cardiac: S1/S2, Irregular Rhythm
GI: Soft, Non Tender, Non Distended, Normal Bowel Sounds
Rectal: Deferred by Provider
Genito-urinary: No [place]
Musculoskeletal: No Clubbing, No Cyanosis,
Skin: Warm and Dry; No Rash
Neuro: AO x 3, No Motor Deficits, Nonfocal/grossly intact, No Slurred Speech, Facial Droop, Tremors or Sedated
Psych: calm
A/P
#New onset A-fib with RVR
Resolved.
-TSH with free T4 reflex: normal
-IV Cardizem drip received 20 mg bolus by EMS
-Check 2D echo 12/02 : LVEF is 55-60%, no significant valvular disease.
- GRAYSON with cardioversion resulted in SR
- Started Eliquis
# pt reported she felt labored breathing when she went to bathroom. Orthostatic BP are normal. No hypoxia.
# Hyponatremia
Better today
#HTN�benign
stopped valsartan and Norvasc, replaced with Cardizem.
#Borderline DM 2 Hx
Blood sugar 152
HgbA1c 5.8
#Ex-smoker
#Bronchitis Hx no acute exacerbation
#Arthritis unknown type
Hold Advil as needed
DVT prophylaxis
total discharge time spent to see the patient, examine the patient, review data and lab results, discuss discharge plan with patient, nursing staff around 65 minutes
Anticipated Discharge: Today
Subjective/Interval History
-
Date of Service: December 03, 2024
No chest pain
No sob
Objective Data
-
Labs:
Laboratory Results
12/03/24
04:35
WBC 6.8
Hgb 13.4
Hct 39.0
Plt Count 189
Sodium 134 L
Potassium 4.6
Chloride 105
Carbon Dioxide 22
BUN 14
Creatinine 0.6
Glucose 108 H
Calcium 9.5
Total Bilirubin 2.0 H
AST 18
ALT 17
Alkaline Phosphatase 103
Vital Signs:
Vital Signs
Temp Pulse Resp BP Pulse Ox
98.6 F 80 20 143/72 96
12/03/24 07:59 12/03/24 07:47 12/03/24 07:59 12/03/24 07:47 12/03/24 07:59
I&O
12/02/24 12/03/24 12/04/24
06:59 06:59 06:59
Intake Total 400 / 400 480 / 480
Balance 400 / 400 480 / 480
--- NOTE | 2024-12-03 09:10 | W.PN.CARDCBS ---
Addendum entered and electronically signed by Feliciano Calderon MD 12/03/24 11:02:
74-year-old woman seen in our office today with symptoms of discomfort in her chest which have been intermittent associated with dyspnea on exertion. Upon presentation found to be in atrial fibrillation with rapid ventricular response and sent to
the emergency department. Admitted and subsequently underwent transesophageal echo and cardioversion on 12/02/2024
PMH: Hypertension and morbid obesity, no prior history of atrial fibrillation
PSH: , herniorrhaphy, left total hip replacement
Medications: Apixaban 5 mg twice daily, diltiazem CD1 120 mg daily
127/78, pulse 60, respirate 20, afebrile, head neck exam unremarkable, lungs are clear, regular rate and rhythm without murmurs abdomen benign, extremities without clubbing cyanosis or edema
Transesophageal echo: Normal LV and RV, EF 55-60%, no significant valvular heart disease, dilated left atrium, possible PFO
Impression:
Paroxysmal/persistent atrial fibrillation, now in sinus rhythm following cardioversion
Hypertension
Obesity
Left total hip
Plan:
She looks well status post transesophageal echo. She is maintaining normal sinus rhythm. Her EKG this morning is unremarkable.
She complains of a vague sense of not getting her breath. proBNP was approximately 550 at admission. We will repeat to ascertain that she would not benefit from a diuretic.
Presuming proBNP is satisfactory, okay for discharge.
Recommended cardiac medications at discharge:
Apixaban 5 mg twice daily
Diltiazem CD1 120 mg daily
We will arrange for outpatient cardiac follow-up
Original Note:
Today's Communication / Plan
-
In sinus rhythm status post GRAYSON/cardioversion
Continue Eliquis, Cardizem
Follow daily weights as outpatient
Outpatient cardiac follow-up arranged
Okay for discharge
Impression / Plan
-
PCP: Dr. Cam Carrera
Cardiology: Dr. Rosales
Impression:
Presented to the ER with rapid A-fib and chest pain 12/01/2024
Atypical chest pain
Newly diagnosed A-fib with RVR 12/01/2024
HTN
LE edema
PHIPPS
Echo 09/17/2022: EF 65 to 70%, normal regional wall motion, mild concentric LVH, aortic sclerosis without stenosis
GRAYSON 12/02/2024: EF 55 to 60%, no regional wall motion abnormalities, no significant valvular disease, no obvious atrial appendage thrombus seen
Plan:
- She presented to the ER with A-fib with RVR and chest discomfort
- Status post successful GRAYSON/cardioversion 12/02/2024
- Remains in sinus rhythm on review of telemetry overnight
- Continue Eliquis 5 mg twice daily
- Continue Cardizem 120 mg daily
- Outpatient amlodipine and valsartan have been stopped at this time
- could consider AAD or ablation if A-fib recurs
- Patient with increased LE edema and some dyspnea on exertion, but pro-BNP only 548. Follow daily weights as outpatient
- Eventual outpatient [facility] evaluation
- TSH 1.08
- Troponin is undetectable despite weeks of atypical chest pain.
- Outpatient cardiac follow-up arranged
- For discharge today
- Discussed with nursing
HPI: Patient came to the ER today after she was noted to be in new rapid A-fib at cardiology visit and cardiology is now consulted in the ER. Patient had previously been seen by cardiology in 2022 for symptoms of LE edema and a history of HTN.
Afterwards patient continued to follow with her PCP, but called our office asking to be seen again as she felt that she had SOB and atypical chest pain around the time she turns 74 back in October. Patient says her symptoms are exertional and that
she feels short of breath with activity and gets an oddly cool sensation in her chest with activity. She is not aware of palpitations necessarily. She has been feeling increasingly anxious as well. In the cardiology office her ECG showed A-fib
with RVR and the patient was referred to the ER for further evaluation. In the ER Cardizem gtt was started and A-fib heart rates have improved which coincides with some symptomatic improvement as well.
Progress Note - Inspector Repairer
Subjective
Date of Service: December 03, 2024
Denies chest pain, palpitations overnight. Does report some mild dyspnea with ambulation
Objective
Labs:
12/03/24 04:35
12/03/24 04:35
Labs
Hgb 13.4 g/dL (12.0-16.0) 12/03/24 04:35
Hct 39.0 % (37.0-47.0) 12/03/24 04:35
Plt Count 189 10^3/uL (130-400) 12/03/24 04:35
Sodium 134 mmol/L (135-145) L 12/03/24 04:35
Potassium 4.6 mmol/L (3.5-5.1) 12/03/24 04:35
BUN 14 mg/dl (7-17) 12/03/24 04:35
Creatinine 0.6 mg/dL (0.6-1.0) 12/03/24 04:35
Glucose 108 mg/dl (70-99) H 12/03/24 04:35
Troponins
12/01/24
15:28
Troponin I < 0.012
Vital Signs and I&O:
Vital Signs
Temp Pulse Resp BP Pulse Ox
98.6 F 60 20 127/78 96
12/03/24 07:59 12/03/24 09:00 12/03/24 07:59 12/03/24 07:58 12/03/24 07:59
Vital Signs
Temp Pulse Resp BP Pulse Ox
98.6 F 60 20 127/78 96
12/03/24 07:59 12/03/24 09:00 12/03/24 07:59 12/03/24 07:58 12/03/24 07:59
Intake & Output
12/01/24 12/02/24 12/03/2419/25
07:59 07:59 07:59 07:59
Intake Total 400 / 400 480 / 960 480 / 480
Balance 400 / 400 480 / 960 480 / 480
Physical Exam
Physical Exam
GEN: No distress, awake, alert, oriented x3. Obese. Sitting in chair
HEENT: supple, anicteric, mmm, EOMI
LUNGS: CTA bilaterally, no wheezes/rales
CV: Reg, S1/S2, no murmur
ABD: soft, BS+, NT/ND
EXT: No cyanosis, clubbing. trace edema of bilateral lower extremity
NEURO: Gross non-focal
SKIN: Warm, pink, dry. No rash
--- NOTE | 2024-12-03 15:22 | W.DCSUMMARY ---
Discharge Summary
Discharge Data
Date of Admission: 12/01/24
Date of Discharge: 12/03/24
-
Pending Results: No
Hospital Course
74 years old female presented with history of chest pain associated with lower extremity edema and palpitations for several weeks. Patient went to see her locomotive crane operator and was found to have atrial fibrillation. Patient was brought into the ER by
ambulance. She was started on intravenous Cardizem and intravenous heparin. Transcribing Operator Head evaluated the patient. patient underwent transesophageal echocardiogram and successful cardioversion. Echocardiogram showed LVEF 55 to 60% with no
significant valvular disease. Patient remained sinus rhythm. She was started on Eliquis. She verbalized understanding potential side effects of her new medications including Eliquis and Cardizem. Her blood pressure remained on the low side.
Valsartan was held for now and to continue with Cardizem only. Patient remained hemodynamically stable. She was discharged home in a stable condition.
Discharge Plan
-
Patient Disposition: Home (Routine Discharge)
Discharge Diagnosis/Procedures: Newly diagnosed paroxysmal atrial fibrillation of unclear duration treated with successful transesophageal echo and cardioversion 12/02/2024
You were started on Eliquis.
Eliquis is a blood thinner, can cause bleeding. Monitor your urine and stool color, avoid falls. Report to ER if you fall and hit your head even without having symptoms.
- Hypertension. Stopped Norvasc. You are started on Cardizem.
Cardizem is a calcium channel yan which can help with the blood pressure and heart rate.
We hold Diovan for now. Monitor your blood pressure because might need to go back on it if your systolic blood pressure more than 130. Follow-up with your primary care doctor
Condition: Good
Diet: Low Sodium
Driving Restrictions: No driving for 24 hours
Bathing Restrictions: None
Specialty Instructions: Weigh Daily- Call MD for wt gain/loss 3 lbs overnight/5 lbs in 1 week
Stand Alone Forms: DC Instructions- Cath/EP Lab
Referrals:
Fei Rosales MD [Active, Cardiology] - 12/22/24 3:20 pm
Referral Note: You have an appointment to see Dr. Rosales's nurse practitioner, Dolores, at the [facility] on 12/22/2024 at 3:20 PM. Please call [phone] if you need to reschedule
Cam Dai, [Family Provider, [facility]]
Additional Discharge Medication Instructions: - Stop taking amlodipine for now, it has been replaced with Cardizem CD (diltiazem) 120 mg daily to help control heart rate and reduce risk of recurrent atrial fibrillation.
- Stop taking valsartan (Diovan) for now due to low blood pressure, but it may be restarted in the future pending your blood pressure.
- Start taking Eliquis 5 mg twice daily to help prevent blood clots and reduce stroke risk associated with A-fib
Prescriptions:
New
Eliquis 5 mg Tablet
5 mg PO BID Qty: 60 11RF
diltiazem HCl [Cardizem CD] 120 mg capsule,extended release 24hr
120 mg PO DAILY Qty: 30 11RF
Continued
calcium carbonate-vitamin D3 [Calcium 600 + D(3)] 600 mg-10 mcg (400 unit) Tablet
1 tab PO DAILY
Discontinued
amlodipine [Norvasc] 5 mg Tablet
5 mg PO DAILY
valsartan 320 mg Tablet
320 mg PO DAILY
ibuprofen [Advil] 200 mg Tablet
200 mg PO Q6HPRN PRN (Reason: mild pain)
Discharge Orders:
Discharge Patient (As Directed); Ordered 12/03/24
Ordered By: Lori Marie
Care Plan Goals
Care Plan Goals:
Problem: Readiness for enhanced knowledge related to diagnosis and treatment plan
Goal: Understand your diagnosis and treatment plan needs, including medications if applicable.
Instructions: Know your diagnosis, underlying causes and treatment plan options, including medications if applicable. Consult with your health care team to learn about your diagnosis and treatment plan, including medications if applicable.
Discharge Date and Time
Discharge Date/Time: 12/03/24 15:04
Print Language: DJIBOUTIAN
== END 2024-12-03 15:04 | disposition home or self-care (01) | DRG 309 ==
LOC: IVU 17:35
PROVIDERS: Clinical Nurse Specialist Family Health; Internal Medicine Cardiovascular Disease; Student in an Organized Health Care Education/Training Program; ADMITTING PHYSICIAN Internal Medicine; ATTENDING PHYSICIAN Internal Medicine; EMERGENCY PHYSICIAN Emergency Medicine; FAMILY PHYSICIAN Family Medicine
PROC: 5A2204Z Restoration of Cardiac Rhythm, Single (ICD-10-PCS; 2024-12-02)
DX: I48.0 Paroxysmal atrial fibrillation (principal); E87.1 Hypo-osmolality and hyponatremia; I10 Essential (primary) hypertension; Z87.891 Personal history of nicotine dependence; Z96.642 Presence of left artificial hip joint; Z88.2 Allergy status to sulfonamides; E11.9 Type 2 diabetes mellitus without complications; F41.9 Anxiety disorder, unspecified; Z79.899 Other long term (current) drug therapy; E66.01 Morbid (severe) obesity due to excess calories; Z68.36 Body mass index [BMI] 36.0-36.9, adult
CPT/HCPCS: 80053; 80061; 83036; 83735; 83880; 84443; 84484; 85025; 92960; 93005; 93312; 93320; 93325; 96365; 96366; 96375; 97116; 97162; 99285

== ENCOUNTER 2024-12-05 09:07 | Emergency (ER) | payer MEDICARE, OTHER, SELFPAY ==
[2024-12-05 09:14] VITALS: BP 148/77
[2024-12-05 09:59] VITALS: BP 147/79; BMI 38.2
[2024-12-05 10:00] VITALS: BP 136/72
--- NOTE | 2024-12-05 11:16 | ED.GENMED ---
History of Present Illness
General
Chief Complaint: Blood Pressure Problem
Time Seen by Provider: 12/05/24 10:09
History of Present Illness
History of Present Illness:
74-year-old female with new diagnosis of A-fib on Eliquis and Cardizem presenting to the emergency department for elevated blood pressure. Patient was recently admitted to the hospital from 12/02 to 12/03 for new onset A-fib. Patient had been
started on Eliquis and Cardizem. She has been checking her blood pressure every day and noticed this morning that her blood pressure was elevated, 161/91. She was concerned due to her recent admission which prompted her to come to the hospital.
When patient was hospitalized, her blood pressure medications of valsartan and amlodipine were discontinued due to low blood pressure while in the ER. She notes mild headache this morning, however otherwise denies any acute symptoms. She denies
chest pain, difficulty breathing, weakness, numbness, visual changes. She denies additional acute medical complaints
Phy Exam
Physical Exam
Physical Exam:
General: Well-appearing, no clinical signs of dehydration, nontoxic and in no acute distress
HEENT: protecting airway
Neck: appears supple
CV: Normal heart rate, regular rhythm
Resp: No accessory muscle use, no increased work of breathing, lungs clear to auscultation bilaterally
Abd: No distention
Extremities: No deformities, no swelling
Neuro: alert, no focal neurologic deficit
: deferred
Rectal: deferred
Psych: Normal affect
Skin: Intact
Course
Vital Signs
Initial and Last Documented VS:
Initial Vital Signs
Temp Pulse Resp BP Pulse Ox
97.9 F 72 16 148/77 98
12/05/24 09:14 12/05/24 09:14 12/05/24 09:14 12/05/24 09:14 12/05/24 09:14
Last Documented Vital Signs
Temp Pulse Resp BP Pulse Ox
98 F 62 16 136/72 98
12/05/24 10:00 12/05/24 11:00 12/05/24 11:00 12/05/24 10:00 12/05/24 11:18
MDM/Problems Addressed
MDM/Problems Addressed:
74-year-old female with history of A-fib on Eliquis and hypertension presenting to the emergency department for elevated blood pressure.
On exam, patient is sitting comfortably. Blood pressure on arrival is within normal limits. She is currently asymptomatic. Without any concern for hypertensive urgency or emergency. On review of recent hospitalization, patient recently had her
medications adjusted, taken off of both amlodipine and valsartan which could be contributing to fluctuating blood pressures. Patient with recent cardiac workup. At this time do not feel patient requires any advanced workup, given his normal blood
pressure in the emergency department. She has an upcoming appoint with her primary care doctor on . Advised to continue her medications as directed. Return precautions discussed and patient verbalized understanding
*Pulse Oximetry
SaO2: 98
Oxygen Mode of Delivery: Room air
Patient hypoxic: no
*Critical Care Note
Total Time (30-74mins, 75-104mins- exclusive of procedures): Not Applicable
ED Attending Note
-
Portions of this chart may have been created with voice recognition software.� Occasional wrong word or��sound alike� substitutions may have occurred due to the inherent limitations of voice recognition software.
Discharge Plan
Departure
Patient Disposition: Home (Routine Discharge)
Date of Disposition: 12/05/24
Time of Disposition: 12:11
Patient with high blood pressure during this ER visit?: No
Condition: Good
Discharge Problem:
HTN (hypertension)
Instructions: High Blood Pressure (DC)
Prescriptions:
No Action
calcium carbonate-vitamin D3 [Calcium 600 + D(3)] 600 mg-10 mcg (400 unit) Tablet
1 tab PO DAILY
Eliquis 5 mg Tablet
5 mg PO BID Qty: 60 11RF
diltiazem HCl [Cardizem CD] 120 mg capsule,extended release 24hr
120 mg PO DAILY Qty: 30 11RF
Referrals:
Cam Dai DO [Family Provider, Family Practice]
Activity Restrictions/Additional Instructions:
You were seen in the emergency department for concern of elevated blood pressure.
You were found to have reassuring blood pressure in the emergency department. Please follow-up with your primary care doctor as scheduled this week, as well as her janitorial assistant
Return to the emergency department for any worsening of your symptoms, or any development of chest pain, difficulty breathing, abdominal pain with persistent vomiting and inability to tolerate food or liquid by mouth (concern for dehydration),
weakness, headache or confusion, fever greater than 100.4, or any additional symptoms that are concerning to you.
Thank you for choosing [facility].
Interventions
Interventions:
*Risk Screen - Suicide Last Done: 12/05/24 09:14
*General Assessment Last Done: 12/05/24 10:00
*Neglect/Abuse Screening Last Done: 12/05/24 09:14
*ED COVID-19 Vaccine History Last Done: 12/05/24 10:00
ED- Cardiac Assessment Last Done: 12/05/24 10:01
ED- Neurological Assessment Last Done: 12/05/24 10:01
ED- Pulmonary Assessment Last Done: 12/05/24 10:01
Discharge Date and Time
Print Language: BAHAMIAN
[2024-12-05 12:25] VITALS: BP 132/76
== END 2024-12-05 12:29 | disposition home or self-care (01) ==
LOC: EMR 09:07
PROVIDERS: EMERGENCY PHYSICIAN Student in an Organized Health Care Education/Training Program; FAMILY PHYSICIAN Family Medicine
DX: I10 Essential (primary) hypertension (principal); I48.91 Unspecified atrial fibrillation; Z79.01 Long term (current) use of anticoagulants
CPT/HCPCS: 99282

== ENCOUNTER 2024-12-06 14:05 | Emergency (ER) | payer MEDICARE, OTHER, SELFPAY ==
[2024-12-06 14:06] VITALS: BP 156/81
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
== END 2024-12-06 15:30 | disposition home or self-care (01) ==
LOC: EMR 14:05
PROVIDERS: EMERGENCY PHYSICIAN Emergency Medicine; FAMILY PHYSICIAN Family Medicine
DX: S09.90XA Unspecified injury of head, initial encounter (principal); I10 Essential (primary) hypertension; Z79.01 Long term (current) use of anticoagulants; W22.03XA Walked into furniture, initial encounter
CPT/HCPCS: 99284; 70450

== ENCOUNTER → 2024-12-23 09:00 | Outpatient (REF) | payer MEDICARE, OTHER, SELFPAY | LOC: DHSLP 09:00 | PROVIDERS: ATTENDING PHYSICIAN Nurse Practitioner; FAMILY PHYSICIAN Family Medicine | DX: G47.00 Insomnia, unspecified (principal); G47.8 Other sleep disorders; R06.83 Snoring | CPT/HCPCS: 95810 ==

== ENCOUNTER 2024-12-27 13:11 | Emergency (ER) | payer MEDICARE, OTHER, SELFPAY ==
[2024-12-27 13:15] VITALS: BP 143/80
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
== END 2024-12-27 15:30 | disposition home or self-care (01) ==
LOC: EMR 13:11
PROVIDERS: EMERGENCY PHYSICIAN Emergency Medicine; FAMILY PHYSICIAN Family Medicine
DX: S00.83XA Contusion of other part of head, initial encounter (principal); W22.8XXA Striking against or struck by other objects, initial encounter; I48.91 Unspecified atrial fibrillation; I10 Essential (primary) hypertension; Z79.01 Long term (current) use of anticoagulants
CPT/HCPCS: 99284; 70450

== ENCOUNTER 2024-12-28 06:40 | Day surgery (SDC) | payer MEDICARE, OTHER, SELFPAY ==
[2024-12-28 07:33] VITALS: BMI 17.4
--- NOTE | 2024-12-28 08:31 | ITS.CL.CARDI ---
Social Security Assessor - Cardioversion
Cardioversion
Procedure Report:
Date of Procedure: December 28 2024
Procedure: Cardioversion
Indication: Symptomatic atrial fibrillation
Performing Physician: Taz Hubbard DO, FACC
Technique: The patient was brought to the holding area. Signed informed consent was obtained. A time out was called and performed. The patient was anesthetized by the anesthesia service. Anticoagulation status was reviewed and appropriate. R2 pads
were placed anteriorly and posteriorly. A 250 J synchronized biphasic shock restored normal sinus rhythm without significant bradycardia. There were no complications.
Conclusion: Uncomplicated cardioversion from atrial fibrillation to sinus rhythm.
Recommendation: Routine post cardioversion care. Continue backend tester anticoagulation.
== END 2024-12-28 09:30 | disposition home or self-care (01) ==
LOC: CATH 06:40
PROVIDERS: ATTENDING PHYSICIAN Nuclear Medicine Nuclear Cardiology; FAMILY PHYSICIAN Family Medicine; OTHER PHYSICIAN Internal Medicine Cardiovascular Disease
DX: I48.91 Unspecified atrial fibrillation (principal); Z79.01 Long term (current) use of anticoagulants; I49.8 Other specified cardiac arrhythmias; I10 Essential (primary) hypertension; Z87.891 Personal history of nicotine dependence; Z79.899 Other long term (current) drug therapy
CPT/HCPCS: 92960; 93005